=== PATIENT | male | born 1945 | race Caucasian/White ===

== ENCOUNTER 2024-03-05 11:12 | Observation (INO) | payer OTHER, BC ==
[2024-03-05] VITALS (20 sets, daily range): BP systolic 132–151; BP diastolic 67–88
[~2024-03-05] VITALS: Ht 175.3 cm; Wt 78.8 kg
--- NOTE | 2024-03-05 11:14 | NUR ---
PATIENT TO ROOM 9 VIA EMS
[2024-03-05] MEDS ORDERED: cefTRIAXone SODIUM 2 GM in SODIUM CHLORIDE 0.9% 100 ML IV ONE (11:25)
[2024-03-05] MEDS ORDERED: SODIUM CHLORIDE 0.9% 1,000 ML IV ONE (11:25)
[2024-03-05 11:45] LABS: BASO% 0.2 % (0-3); EOS% 0.3 % (0-8); HEMATOCRIT 44.3 % (39.0-50.0); HEMOGLOBIN 14.8 g/dl (14.0-18.0); IMMATURE GRANULOCYTES 0.2 % (0.0-5.0); LYMPH% 4.2 % (15-41); MEAN CELL VOLUME 90.2 fL CALC (80.0-100.0); MEAN CORPUSCULAR HGB 30.1 pG CALC (26.0-32.0); MEAN CORPUSCULAR HGB CONC 33.4 g/dL CAL (32.0-36.0); MONO% 6.8 % (2-13); NEUT# 10.61 thou/uL (1.82-7.42); NEUT% 88.3 % (42-76); RED BLOOD COUNT 4.91 mill/uL (4.70-6.10); RED CELL DISTRI WIDTH 13.2 % (11.5-15.5)
[2024-03-05 11:46] LABS: URINE BILIRUBIN - DIPSTICK Negative (NEGATIVE); URINE BLOOD DIPSTICK Moderate (NEGATIVE); URINE GLUCOSE - DIPSTICK Negative (NEGATIVE); URINE KETONE Negative (NEGATIVE); URINE LEUK ESTERASE Negative (NEGATIVE); URINE NITRITE - DIPSTICK Negative (Negative); URINE PH 5.5 (4.5-8.0); URINE PROTEIN - DIPSTICK Negative (NEG-TRACE); URINE UROBILINOGEN - DIPSTICK 0.2 E.U./dL (0.2)
[2024-03-05] MEDS ORDERED: COZAAR25 MG PO (11:47)
[2024-03-05] MEDS ORDERED: CITALOPRAM20 MG PO (11:47)
[2024-03-05] MEDS ORDERED: ARICEPT10 MG PO (11:48)
[2024-03-05] MEDS ORDERED: SPIRIVA RE2.5 MCG/AC (11:49)
[2024-03-05] MEDS ORDERED: AMLODIPINE BESY10 MG PO (11:49)
[2024-03-05] MEDS ORDERED: PROTONIX40 M2 PO (11:50)
[2024-03-05 11:54] LABS: URINE COLOR Yellow
[2024-03-05 11:59] LABS: ALBUMIN 4.3 g/dL (3.2-5.0); BILIRUBIN, TOTAL 0.9 mg/dL (0.2-1.3); CREATININE 1.1 mg/dL (0.7-1.3); MAGNESIUM 1.7 mg/dL (1.6-2.3); POTASSIUM 4.4 mmol/l (3.5-5.1); TOTAL PROTEIN 7.4 g/dL (6.3-8.2)
[2024-03-05 12:00] LABS: INTERNATIONAL NORMALIZED RATIO 1.1 RATIO (0.7-1.3)
[2024-03-05 12:01] LABS: PROTHROMBIN TIME 10.2 SECONDS (9.0-12.5)
[2024-03-05] MEDS ORDERED: AZITHROMYCIN 500 MG in SODIUM CHLORIDE 0.9% 250 ML IV ONE (12:25)
--- NOTE | 2024-03-05 13:09 | NUR ---
PT RESTING WITH FAMILY AT BEDSIDE
[2024-03-05] MEDS ORDERED: DEXAMETHASONE SOD. PHOSPHATE 10 MG/ML VIAL IV ONE (13:45)
[2024-03-05] MEDS ORDERED: KETOROLAC TROMETHAMINE 15 MG/ML SDV IV PRN (13:55)
[2024-03-05] MEDS ORDERED: MAGNESIUM HYDROXIDE 30 ML UDC PO PRN (14:00)
[2024-03-05] MEDS ORDERED: ACETAMINOPHEN 325 MG/TAB PO PRN (14:00)
[2024-03-05] MEDS ORDERED: hydrALAZINE HCL 20 MG/ML VIAL(1 ML) IV PRN (14:00)
[2024-03-05] MEDS ORDERED: SODIUM CHLORIDE 0.9% 1,000 ML IV PRN (14:00)
[2024-03-05] MEDS ORDERED: ALBUTEROL SULFATE 8 GM INH IN SCH (15:00)
--- NOTE | 2024-03-05 15:04 | NUR ---
PT REPORT TO [facility] NURSE. PT TRANSPORTED VIA CART TO ROOM 266 ON TELEMETRY. TRANSFERRED CARE OF PT.
--- NOTE | 2024-03-05 16:50 | NUR ---
PATIENT A/O X1; ROOM AIR; BREATHING UNLABORED AND EVEN; SITTING SEMI BARBER IN BED; DENIED ANY PAIN; DENIED ANY N/D/V AT THIS TIME; IV SITE IN [facility] CLEAN AND INTACT RUNNING IWTH NS @125; PATINET DENIED NEEDING ANYTHING; PATIENT LIMITED VERBAL; MEDICATION REVIWED; CALL LIGHT WITHIN REACH,EDDUCATED ON HOW TO USE, PERSONAL ITEMS WITHIN REACH, BED IN LOWEST POSTION; BED ALARM ACTIVATED
--- NOTE | 2024-03-05 20:00 | NUR ---
REPORT RECIEVED FROM [facility] NURSE. ELIF GROSS. PT RESTING IN BED WATCHING TELEVISION AT THIS TIME. PT IS A&O X3, HOWEVER DOES PRESENT WITH SOME CONFUSION. UPON AUSCULTATION OF LUNG SOUNDS, LOWER LOBES ARE DIMINISHED. PT HAS STRONG PERIPHERAL PULSES. PT STATES THAT HIS LAST BM WAS YESTERDAY. BOWEL SOUNDS ARE ACTIVE X4 QUADRANTS. PT REMAINS ON AIRBORNE PRECAUTIONS AT THIS TIME. CALL LIGHT IN REACH, AND SAFETY PRECAUTIONS IN PLACE. PT EDUCATED ON POC AND MEDICATION SCHEDULE.
[2024-03-05] MEDS ORDERED: ENOXAPARIN SODIUM 40 MG/0.4 ML SYR SC SCH (21:00)
[2024-03-05] MEDS ORDERED: DONEPEZIL HCL 5 MG/TAB PO SCH (21:00)
--- NOTE | 2024-03-06 00:25 | NUR ---
PT RESTING IN BED WITH EYES CLOSED AT THIS TIME. EASILY AROUSABLE, AND RESPIRATIONS ARE EVEN AND UNLABORED. NO S&S OF DISTRESS NOTED AT THIS TIME. CALL LIGHT IN REACH, AND SAFETY PRECAUTIONS IN PLACE.
[2024-03-06 03:41] VITALS: BP 157/83
[2024-03-06 04:00] VITALS: BP 157/83
--- NOTE | 2024-03-06 04:21 | NUR ---
PT RESTING IN BED WATCHING TELEVISION. PT STATES THAT HE "WET" HIS BRIEF. THIS AGRICULTURAL CHEMIST ASSISTED IN CHANGING BRIEF AND PROVIDING JOHNNY CARE, PT TOLERATED WELL WITH NO COMPLAINTS VOICED AT THIS TIME. NO S&S OF DISTRESS NOTED AT THIS TIME. CALL LIGHT IN REACH, AND SAFETY PRECAUTIONS IN PLACE.
[2024-03-06 05:21] LABS: BASO% 0.3 % (0-3); HEMATOCRIT 39.5 % (39.0-50.0); HEMOGLOBIN 13.2 g/dl (14.0-18.0); IMMATURE GRANULOCYTES 0.1 % (0.0-5.0); LYMPH% 8.6 % (15-41); MEAN CELL VOLUME 92.3 fL CALC (80.0-100.0); MEAN CORPUSCULAR HGB 30.8 pG CALC (26.0-32.0); MEAN CORPUSCULAR HGB CONC 33.4 g/dL CAL (32.0-36.0); MONO% 5.3 % (2-13); NEUT# 5.77 thou/uL (1.82-7.42); NEUT% 85.7 % (42-76); RED BLOOD COUNT 4.28 mill/uL (4.70-6.10); RED CELL DISTRI WIDTH 13.6 % (11.5-15.5)
[2024-03-06 05:36] LABS: ALBUMIN 3.6 g/dL (3.2-5.0); BILIRUBIN, TOTAL 0.6 mg/dL (0.2-1.3); CHOLESTEROL HDL RATIO 2.2 (<4.4 (CALC)); MAGNESIUM 1.8 mg/dL (1.6-2.3); POTASSIUM 4.1 mmol/l (3.5-5.1); TOTAL PROTEIN 6.2 g/dL (6.3-8.2)
[2024-03-06 06:29] VITALS: BP 128/70
[2024-03-06] MEDS ORDERED: TAMSULOSIN HCL 0.4 MG CAP PO SCH (08:00)
[2024-03-06] MEDS ORDERED: amLODIPine BESYLATE 5 MG/TAB PO SCH (09:00)
[2024-03-06] MEDS ORDERED: TIOTROPIUM BROMIDE MONOHYDRATE 2.5 MCG/ACT 4 GM INH IN SCH (09:00)
[2024-03-06] MEDS ORDERED: DEXAMETHASONE SOD. PHOSPHATE 10 MG/ML VIAL IV SCH (09:00)
[2024-03-06] MEDS ORDERED: PANTOPRAZOLE SODIUM Sesquihydr 40 MG/TAB PO SCH (09:00)
[2024-03-06] MEDS ORDERED: LOSARTAN Potassium 25 MG/TAB PO SCH (09:00)
[2024-03-06] MEDS ORDERED: PAXLOVID 10 X 11 TAB PO (09:07)
--- NOTE | 2024-03-06 09:34 | NUR ---
patient sitting up in recliner with minimum assistance.
[2024-03-06] MEDS ORDERED: METOPROLOL SUCCINATE 25 MG/TAB-TOPROL XL PO SCH (10:30)
--- NOTE | 2024-03-06 10:30 | NUR ---
PATIENT RESTING IN BED, BED LOCKED AND LOW, CALL LIGHT WITHIN REACH, NO APPARENT DISTRESS REPORTED OR OBSERVED. PLAN OF CARE REVIEWED WITH PATIENT, QUESTIONS ENCOURAGED AND ANSWERED, NO FURTHER QUESTIONS AT THIS TIME. PATIENT ENCOURAGED TO REACH OUT TO STAFF IF ANY FURTHER HELP IS NEEDED. WILL CONTINUE TO MONITOR.
[2024-03-06 10:32] VITALS: BP 140/71
[2024-03-06 11:01] VITALS: BP 140/71
--- NOTE | 2024-03-06 11:20 | NUR ---
Discharge instructions given. Patient verbalizes understanding of same. Discharged in stable condition via Wheelchair to Home with family. All belongings sent with pt. IV REMOVED, CATHETER INTACT, SITE WNL.
[2024-03-06] MEDS ORDERED: AZITHROMYCIN 500 MG in SODIUM CHLORIDE 0.9% 250 ML IV SCH (12:30)
--- NOTE | 2024-03-07 10:49 | NUR ---
Discharge follow up call completed 03/06/24. of patient states he had a good night and has had no issues since discharge. Patient is taking prescribed medication as directed. has been in contact with patient's PCP and is waiting for them to return the call with an appointment time and date. No needs or concerns verbalized at this time. expressed her gratitude for the follow up call.
== END 2024-03-06 12:15 | disposition home health service (06) | DRG 871 ==
LOC: ED 11:12 → ED-I 11:55 → ED 11:55 → ED-I 13:33 → ED 13:42 → MS2 13:44
PROVIDERS: Family Medicine; ADMIT Student in an Organized Health Care Education/Training Program; ATTEND Student in an Organized Health Care Education/Training Program
DX: A41.89 Other specified sepsis (principal); U07.1 COVID-19; J40 Bronchitis, not specified as acute or chronic; R50.9 Fever, unspecified; R53.1 Weakness; R09.02 Hypoxemia; I10 Essential (primary) hypertension; F03.90 Unspecified dementia, unspecified severity, without behavioral disturbance, psychotic disturbance, mood disturbance, and anxiety; J44.9 Chronic obstructive pulmonary disease, unspecified; E03.9 Hypothyroidism, unspecified; E78.5 Hyperlipidemia, unspecified; K21.9 Gastro-esophageal reflux disease without esophagitis
CPT/HCPCS: J1650